=== PATIENT | female | born 1975 | race Two or more races ===

== ENCOUNTER 2025-03-30 12:38 | Emergency (ER) | payer OTHER ==
[~2025-03-30] VITALS: Ht 149.9 cm; Wt 57.2 kg
--- NOTE | 2025-03-30 13:56 | ED.PDOC ---
General HPI Comments 49-YEAR-OLD FEMALE PRESENTS HERE WITH 3 DAYS OF LOWER PELVIS PAIN. SHE STATES IT HAS BEEN PRESSURE-LIKE. SHE STATES SHE DOES FEEL PRESSURE WHEN SHE URINATES BUT NO BURNING WHEN SHE URINATES. DENIES ANY NAUSEA VOMITING DIARRHEA. DOES NOT REPORT ANY CONSTIPATION THERE NO RECENT COUGH COLD RUNNY NOSE. PATIENT HAS NOT TAKEN ANYTHING TO MAKE THE PAIN BETTER. SHE STATES THAT SHE HAS BEEN ABLE TO EAT OKAY WITHOUT ANY DIFFICULTY. Chief Complaint: Pelvic Pain Time Seen by MD: 13:53 Primary Care Provider: UNKNOWN Reviewed notes: Nurses Notes, Medications, Allergies Allergies: Coded Allergies: NO KNOWN ALLERGIES (Unverified , 03/30/25) Home Meds Active Scripts Docusate Sodium (Colace) 100 Mg Cap, 1 CAP PO BID, #30 CAP Prov:SHERIF ESTES MD 03/30/25 Hydrocodone-Acetaminophen (Hydrocodone Bitartrate/AC 5-325 mg) 1 Tab Tab, 1 TAB PO Q6HP PRN, #10 TAB Prov:SHERIF ESTES MD 03/30/25 Information Source: Patient Mode of Arrival: Ambulatory Severity: Moderate Timing: Weeks Duration: Since onset Prehospital treatment: None Onset: Spontaneous Symptoms: Dysuria, Frequency History of: None Location: None Modifying factors: None associated signs and symptoms: Dysuria, Frequency Past Medical History PAST MEDICAL HISTORY: Denies Surgical History: Denies all surgeries 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 Family History Family History: Unknown Social History Smoker: Non-Smoker Alcohol: Denies ETOH Use Drugs: Denies Drug Use Lives In: Home Genitourinary: reports: burning, dysuria, frequency Musculoskeletal: reports: others (right shoulder pain) All Other Systems: Reviewed and Negative (as per hpi) Physical Exam General Appearance: No Apparent Distress, Normal HEENT: Normal ENT Inspection, Pharynx Normal, TMs Normal Neck: Full Range of Motion, Non-Tender, Normal, Normal Inspection Respiratory: Chest Non-Tender, Lungs Clear, No Accessory Muscle Use, No Respiratory Distress, Normal Breath Sounds Cardiovascular: No Edema, No Murmur, No Gallop, Normal Peripheral Pulses, Regular Rate/Rhythm Breast Exam: Deferred Gastrointestinal: No Organomegaly, Non Tender, No Pulsatile Mass, Normal Bowel Sounds, Soft, Other (NONTENDER ABDOMEN.) Genitalia: Deferred Pelvic: Deferred Rectal: Deferred Extremities: No calf tenderness, Normal capillary refill, Normal inspection, Normal range of motion, Non-tender, No pedal edema Musculoskeletal : Apperance: Normal Neurologic: Alert, resident program specialist II-XII nml as Tested, No Motor Deficits, Normal Affect, Normal Mood, No Sensory Deficits Cerebellar Function: Normal Reflexes: Normal Skin: Dry, Normal Color, Warm Lymphatic: No Adenopathy Was a procedure done? Was a procedure done?: No Differential Diagnosis Kidney stone (Female): Urinary obstruction, Urolithiasis Kidney stone (Male): N/A Penile/Scrotal: N/A Urinary Problem (Male): N/A Urinary Problem (Female): UTI, Vaginitis X-Ray, Labs, Meds, VS Vital Signs Date Time Temp Pulse Resp B/P (MAP) Pulse Ox O2 Delivery O2 Flow Rate FiO2 03/30/25 15:30 76 20 105/62 (76) 98 03/30/25 13:06 98.0 82 17 107/60 (76) 98 98.0 Lab Test 03/30/25 14:15 03/30/25 14:06 Range/Units Urine Color Light-yellow Yellow Urine Clarity Clear Clear Urine pH 8.0 5.0-9.0 Urine Specific [place] 1.016 1.001-1.035 Urine Protein Negative Negative Urine Ketones Negative Negative Urine Blood Negative Negative /uL Urine Nitrite Negative Negative Urine Bilirubin Negative Negative Urine Urobilinogen Normal Negative mg/dL Urine Leukocyte Esterase Negative Negative /uL Urine RBC 4 0 - 4 /hpf Urine Microscopic WBC 1 0-5 /HPF Urine Squamous Epithelial Cells Few <5 /hpf Urine Bacteria None seen None Seen /hpf Urine Glucose Normal Normal mg/dL White Blood Count 11.0 H 4.4-10.8 10^3/uL Red Blood Count 4.79 4.0-5.20 10^6/uL Hemoglobin 14.9 12.2-16.2 g/dL Hematocrit 42.5 36.0-46.0 % Mean Corpuscular Volume 88.8 80.0-100.0 fL Mean Corpuscular Hemoglobin 31.2 28.0-32.0 pg Mean Corpuscular Hemoglobin Concent 35.1 32.0-36.0 g/dL Red Cell Distribution Width 12.7 11.8-14.3 % Platelet Count 278 140-450 10^3/uL Mean Platelet Volume 8.2 6.9-10.8 fL Neutrophils (%) (Auto) 69.8 37.0-80.0 % Lymphocytes (%) (Auto) 22.6 10.0-50.0 % Monocytes (%) (Auto) 5.9 0.0-12.0 % Eosinophils (%) (Auto) 1.2 0.0-7.0 % Basophils (%) (Auto) 0.5 0.0-2.0 % Neutrophils # (Auto) 7.7 1.6-8.6 10 ^3/uL Lymphocytes # (Auto) 2.5 0.4-5.4 10 ^3/uL Monocytes # (Auto) 0.6 0-1.3 10 ^3/uL Eosinophils # (Auto) 0.1 0-0.8 10 ^3/uL Basophils # (Auto) 0.1 0-0.2 10 ^3/uL Nucleated Red Blood Cells 0.1 % Sodium Level 142 136-145 mmol/L Potassium Level 4.1 3.5-5.1 mmol/L Chloride Level 107 98-107 mmol/L Carbon Dioxide Level 26 20-31 mmol/L Anion Gap 9 5-15 Blood Urea Nitrogen 10 9-23 mg/dL Creatinine 0.58 0.550-1.02 mg/dL Glomerular Filtration Rate Calc 112 >90 mL/min BUN/Creatinine Ratio 17.2 10.0-20.0 Serum Glucose 82 74-106 mg/dL Calcium Level 9.8 8.7-10.4 mg/dL Total Bilirubin 0.3 0.2-1.0 mg/dL Aspartate Amino Transferase (AST) 13 13-40 U/L Alanine Aminotransferase (ALT) 29 7-40 U/L Alkaline Phosphatase 78 46-116 U/L Total Protein 6.7 5.7-8.2 g/dL Albumin 4.4 3.2-4.8 g/dL [address] [address] Ph: [phone] DIAGNOSTIC IMAGING Diagnostic Imaging Report : [id number] Signed PATIENT: RENEA MESSINA ACCT: [id number] UNIT: [id number] : 1975 LOC: ER ROOM / BED: / AGE / SEX: 49 / F ADM STATUS: REG ER SERVICE 1400 ORDERING PHYSICIAN: SHERIF ESTES MD PROCEDURE(s): PELUS - PELVIC REASON: RULE OUT OVARIAN TORSION. PLEASE OBTAIN DOPPLER FLOW ORDER NUMBER(s): [id number], ACCESSION NUMBER(s): [id number] EXAM: US PELVIC CLINICAL HISTORY: RULE OUT OVARIAN TORSION. PLEASE OBTAIN DOPPLER FLOW TECHNIQUE: Transabdominal and transvaginal ultrasound of the pelvis with color Doppler flow as clinically indicated. COMPARISON: None Findings: Same-day quantitative beta-hCG is not available. Uterus measures 8.1 x 3.9 x 5.7 cm in size with relatively homogeneous echotexture and normal contours. Intrauterine device is in the uterine fundus. Small echogenic structures in the lower uterine segment. Endometrial thickness measures 0.3 cm with smooth contour. Nabothian cyst. Right ovary measures 3.9 x 1.6 x 2.1 cm. 2.3 x 1.9 x 1.6 cm hypoechoic lesion in the right ovary. Left ovary measures 1.9 x 1.3 x 1.7 cm. Normal ovarian color Doppler flow to the bilateral ovaries. No free fluid in the cul-de-sac. Impression: 1. Uterus grossly unremarkable with endometrial thickness of 0.3 cm. 2. Small echogenic structures in the lower uterine segment, nonspecific. Attention on follow-up. 3. 2.3 x 1.9 x 1.6 cm hypoechoic lesion in the right ovary may reflect a functional cyst. Attention on follow-up. 4. Bilateral ovaries within normal limits with normal color flow. ATED BY: JAYNE GARLAND DO DICTATED DATE/TIME: 03/30/25 1533 SIGNED BY: JAYNE GARLAND DO SIGNED DATE/TIME: 03/30/25 1533 CC: Time of 1ST Reevaluation: 14:27 Reevaluation 1ST: Unchanged Patient Education/Counseling: Diagnosis, Treatment Family Education/Counseling: No Family Present Departure 1 Departure Time of Disposition: 16:25 Impression: Primary Impression: Ovarian cyst Additional Impression: Abdominal pain Disposition: 01 HOME / SELF CARE / HOMELESS Condition: Stable Additional Instructions: [address] [address] Ph: [phone] DIAGNOSTIC IMAGING Diagnostic Imaging Report : [id number] Signed PATIENT: RENEA MESSINA ACCT: [id number] UNIT: [id number] : 1975 LOC: ER ROOM / BED: / AGE / SEX: 49 / F ADM STATUS: REG ER SERVICE 1400 ORDERING PHYSICIAN: SHERIF ESTES MD PROCEDURE(s): PELUS - PELVIC REASON: RULE OUT OVARIAN TORSION. PLEASE OBTAIN DOPPLER FLOW ORDER NUMBER(s): [id number], ACCESSION NUMBER(s): [id number] EXAM: US PELVIC CLINICAL HISTORY: RULE OUT OVARIAN TORSION. PLEASE OBTAIN DOPPLER FLOW TECHNIQUE: Transabdominal and transvaginal ultrasound of the pelvis with color Doppler flow as clinically indicated. COMPARISON: None Findings: Same-day quantitative beta-hCG is not available. Uterus measures 8.1 x 3.9 x 5.7 cm in size with relatively homogeneous echotexture and normal contours. Intrauterine device is in the uterine fundus. Small echogenic structures in the lower uterine segment. Endometrial thickness measures 0.3 cm with smooth contour. Nabothian cyst. Right ovary measures 3.9 x 1.6 x 2.1 cm. 2.3 x 1.9 x 1.6 cm hypoechoic lesion in the right ovary. Left ovary measures 1.9 x 1.3 x 1.7 cm. Normal ovarian color Doppler flow to the bilateral ovaries. No free fluid in the cul-de-sac. Impression: 1. Uterus grossly unremarkable with endometrial thickness of 0.3 cm. 2. Small echogenic structures in the lower uterine segment, nonspecific. Attention on follow-up. 3. 2.3 x 1.9 x 1.6 cm hypoechoic lesion in the right ovary may reflect a functional cyst. Attention on follow-up. 4. Bilateral ovaries within normal limits with normal color flow. ATED BY: JAYNE GARLAND DO DICTATED DATE/TIME: 03/30/251532 SIGNED BY: JAYNE GARLAND DO SIGNED DATE/TIME: 03/30/251532 CC: e-Prescriptions Docusate Sodium (Colace) 100 Mg Cap 1 CAP PO BID, #30 CAP Prov: SHERIF ESTES MD 03/30/25 Hydrocodone-Acetaminophen (Hydrocodone Bitartrate/AC 5-325 mg) 1 Tab Tab 1 TAB PO Q6HP PRN, #10 TAB Prov: SHERIF ESTES MD 03/30/25 Discharged With: Self Critical Care Note Critical Care Time?: No Stability Stability form required: No I personally scribed for SHERIF ESTES MD ([email or web address]) on 03/30/25 at 13:56. Electronically submitted by Archana Dumont ([email or web address]). I personally scribed for SHERIF ESTES MD ([email or web address]) on 03/30/25 at 16:26. Electronically submitted by Archana Dumont ([email or web address]). SHERIF ESTES MD Mar 30, 2025 13:56
[2025-03-30 14:18] LABS: Urine Bacteria None Seen /hpf (None Seen)
[2025-03-30 14:31] LABS: Urine Blood Negative /uL (Negative); Urine Clarity Clear (Clear); Urine Color Light-Yellow (Yellow); Urine Protein, UAD Negative (Negative); Urine Specific Gravity 1.016 (1.001-1.035); Urine Squamous Epithelial Cell FEW /hpf (<5); Urine Urobilinogen Normal (Negative); Urine WBC 1 /HPF (0-5)
[2025-03-30 14:31] LABS: Basophils # (auto) 0.1 10 ^3/uL (0-0.2); Basophils % (auto) 0.5 % (0.0-2.0); Eosinophils # (auto) 0.1 10 ^3/uL (0-0.8); Eosinophils % (auto) 1.2 % (0.0-7.0); Hematocrit 42.5 % (36.0-46.0); Hemoglobin 14.9 g/dL (12.2-16.2); Lymphocytes # (auto) 2.5 10 ^3/uL (0.4-5.4); Lymphocytes % (auto) 22.6 % (10.0-50.0); Mean Corpuscular Hemoglobin 31.2 pg (28.0-32.0); Mean Corpuscular Hgb Conc. 35.1 g/dL (32.0-36.0); Mean Corpuscular Volume 88.8 fL (80.0-100.0); Monocytes # (auto) 0.6 10 ^3/uL (0-1.3); Monocytes % (auto) 5.9 % (0.0-12.0); Neutrophils # (auto) 7.7 10 ^3/uL (1.6-8.6); Neutrophils % (auto) 69.8 % (37.0-80.0); Nucleated Red Blood Cells % 0.1 %; Platelet Count (auto) 278 10^3/uL (140-450); Red Blood Cells 4.79 10^6/uL (4.0-5.20); Red Cell Distribution Width 12.7 % (11.8-14.3)
[2025-03-30 14:41] LABS: Alanine Aminotransferase 29 U/L (7-40); Albumin 4.4 g/dL (3.2-4.8); Alkaline Phosphatase 78 U/L (46-116); Anion Gap 9 (5-15); Aspartate Aminotransferase 13 U/L (13-40); BUN/Creatinine Ratio 17.2 (10.0-20.0); Bilirubin, Total 0.3 mg/dL (0.2-1.0); Blood Urea Nitrogen 10 mg/dL (9-23); Calcium 9.8 mg/dL (8.7-10.4); Carbon Dioxide 26 mmol/L (20-31); Chloride 107 mmol/L (98-107); Glucose 82 mg/dL (74-106); Potassium 4.1 mmol/L (3.5-5.1); Sodium 142 mmol/L (136-145); Total Protein 6.7 g/dL (5.7-8.2)
--- NOTE | 2025-03-30 15:36 | DVH ---
EXAM: US PELVIC CLINICAL HISTORY: RULE OUT OVARIAN TORSION. PLEASE OBTAIN DOPPLER FLOW TECHNIQUE: Transabdominal and transvaginal ultrasound of the pelvis with color Doppler flow as clinic ally indicated. COMPARISON: None Findings: Same-day quantitative beta-hCG is not available. Uterus measures 8.1 x 3.9 x 5.7 cm in size with relatively homogeneous echotexture and normal contour s. Intrauterine device is in the uterine fundus. Small echogenic structures in the lower uterine segm ent. Endometrial thickness measures 0.3 cm with smooth contour. Nabothian cyst. Right ovary measures 3.9 x 1.6 x 2.1 cm. 2.3 x 1.9 x 1.6 cm hypoechoic lesion in the right ovary. Le ft ovary measures 1.9 x 1.3 x 1.7 cm. Normal ovarian color Doppler flow to the bilateral ovaries. No free fluid in the cul-de-sac. Impression: 1. Uterus grossly unremarkable with endometrial thickness of 0.3 cm. 2. Small echogenic structures in the lower uterine segment, nonspecific. Attention on follow-up. 3. 2.3 x 1.9 x 1.6 cm hypoechoic lesion in the right ovary may reflect a functional cyst. Attention o n follow-up. 4. Bilateral ovaries within normal limits with normal color flow.
[2025-03-30] MEDS ORDERED: HYDR-4902 PO (16:22)
[2025-03-30] MEDS ORDERED: DOCU-94 PO (16:22)
[2025-03-30 16:47] VITALS: BP 110/69; PULSE 75; RESP 17; TEMP 98.2; O2SAT 100
[2025-03-30] MEDS: HYDROcodone-ACET 5/325MG TAB PO ONE (16:51)
== END 2025-03-30 16:45 | disposition home or self-care (01) ==
LOC: ER 12:38
DX: N83.209 Unspecified ovarian cyst, unspecified side (principal); R10.2 Pelvic and perineal pain
CPT/HCPCS: 36415; 76856; 80053; 81001; 85025